=== PATIENT | male | born 1970 | race Caucasian/White ===

== ENCOUNTER 2018-05-10 11:45 | Emergency (ER) | payer SELFPAY ==
[2018-05-10] MEDS ORDERED: Diphtheria,Pertussis(Acell),Tetanus Vaccine 0.5 ML Syringe IM ONE (12:57)
--- NOTE | 2018-05-10 12:57 | EDM.PDOC ---
ED HPI GENERAL MEDICAL PROBLEM - General Chief Complaint: Upper Extremity Injury/Pain Stated Complaint: NAIL WENT INTO HIS RIGHT PALM Time Seen by Provider: 05/10/18 12:39 Source of Information: Reports: Patient History Limitations: Reports: No Limitations - History of Present Illness INITIAL COMMENTS - FREE TEXT/NARRATIVE: HISTORY AND PHYSICAL: History of present illness: 47-year-old well patient presented to the ER today after a injury to his right hand. Patient states he was working last night at about 8 PM and he slapped his hand onto a board with a nail in it. The nail did not penetrate the skin however it did leave a small red shoshana on his right medial surface of his palm. Patient presented to ER today because the pain has progressively gotten worse, increased swelling, patient describes pain as sharp, worse with movement, 6 out of 10. Patient's last tetanus was greater than 5 years ago. Review of systems: As per history of present illness and below otherwise all systems reviewed and negative. Past medical history: As per history of present illness and as reviewed below otherwise noncontributory. Surgical history: As per history of present illness and as reviewed below otherwise noncontributory. Social history: No reported history of drug or alcohol abuse. Family history: As per history of present illness and as reviewed below otherwise noncontributory. Physical exam: General: Well-appearing male who appears to be a reliable historian. Nontoxic appearing and in no acute distress. Alert and oriented. HEENT: Atraumatic, normocephalic, pupils equal and reactive bilaterally, negative for conjunctival pallor or scleral icterus, mucous membranes moist, throat clear, neck supple, nontender, trachea midline. No drooling or trismus noted. No meningeal signs Lungs: Clear to auscultation, breath sounds equal bilaterally, chest nontender. Heart: S1S2, regular rate and rhythm without overt murmur Abdomen: Soft, nondistended, nontender. Pelvis: Stable nontender. Genitourinary: Deferred. Rectal: Deferred. Skin: Puncture wound noted to the right medial palmar surface of the hand. No erythema, or drainage noted. There is significant swelling to the medial portion of the hand extending to the medial dorsal surface. Patient has pain with light palpation to area. Intact, warm, dry. No lesions or rashes noted. Extremities: Patient has adequate flexion and extension of the phalanges however there is some limited range of motion in the fourth and fifth digits of the right hand secondary to swelling. Neurovascular unremarkable. Neuro: Awake, alert, oriented. Cranial nerves II through XII unremarkable. Cerebellum unremarkable. Motor and sensory unremarkable throughout. Exam nonfocal. Notes: Patient is agreeable to an x-ray. X-ray is negative for fracture or dislocation. The injury does not appear to be a true puncture wound although there is a small punctate area on the palmar surface. The surrounding area has slight erythema and soft tissue swelling. This could represent an early cellulitis. We'll plan to treat with Keflex. Wound care provided in the ER. Tetanus updated. Signs and symptoms that would prompt him to return to the ER are discussed. Patient voices understanding and is agreeable to care. We'll give him tramadol, #15 for pain management. Supportive care measures were reviewed and discussed. With his primary care provider next week. Denies any further questions or concerns at this time. Diagnostics: [X-ray right hand] Therapeutics: Tdap, wound care Impression: Right hand injury Cellulitis Plan: 1. Keep the area clean and dry. Continue to monitor for signs of infection. 2. Take your medications as directed. Tylenol and/or ibuprofen as needed for pain management. You may use the tramadol for moderate to severe pain. This medication may cause drowsiness a do not take it will driving her needing to be functioning outside of the house. 3. Follow-up with your primary caregiver in the next 1-2 days. Return to the ED as needed and as discussed Definitive disposition and diagnosis as appropriate pending reevaluation and review of above. Right Hand Pain Score (Numeric/FACES): 5 - Related Data Allergies Allergy/AdvReac Type Severity Reaction Status Date / Time Penicillins Allergy Rash Verified 05/10/18 12:42 Home Meds: Home Meds Ibuprofen 2 tab PO ASDIRECTED PRN 03/27/15 [History] Insulin Glarg,Human.Rec.Analog [Lantus Solostar] 8 units SUBCUT BEDTIME [History] Liraglutide [Victoza] 1 injection SUBCUT DAILY 03/27/15 [History] Losartan Potassium 100 mg PO DAILY 03/27/15 [History] Naproxen Sodium [Aleve] 1 tab PO ASDIRECTED PRN 03/27/15 [History] Omeprazole [Prilosec] 20 mg PO DAILY 03/27/15 [History] Pitavastatin [Livalo] 2 mg PO DAILY 03/27/15 [History] metFORMIN [Glucophage] 500 mg PO BID 03/27/15 [History] MV-Min/Vit C/Glu/Maria Teresa HCl/HC124 [Airborne Tablet Chewable] 1 each PO 03/29/15 [ History] Past Medical History HEENT History: Reports: Impaired Vision Cardiovascular History: Reports: High Cholesterol, Hypertension Endocrine/Metabolic History: Reports: Diabetes, Type II Oncologic (Cancer) History: Reports: Basal Cell Carcinoma, Squamous Cell Carcinoma - Infectious Disease History Infectious Disease History: Reports: Chicken Pox - Past Surgical History Musculoskeletal Surgical History: Reports: Arthroscopic Knee Social & Family History - Family History Family Medical History: Noncontributory - Tobacco Use Smoking Status *Q: Former Smoker Used Tobacco, but Quit: Yes Month/Year Tobacco Last Used: 1997 - Caffeine Use Caffeine Use: Reports: Coffee, Energy Drinks, Soda, Tea - Recreational Drug Use Recreational Drug Use: No Review of Systems - Review of Systems Review Of Systems: ROS reveals no pertinent complaints other than HPI. ED EXAM, GENERAL - Physical Exam Exam: See Below (See dictation) Course - Vital Signs Last Recorded V/S: Last Vital Signs Temp 98.2 F 05/10/18 12:37 Pulse 83 05/10/18 12:37 Resp 18 05/10/18 12:37 BP 143/79 H 05/10/18 12:37 Pulse Ox 97 05/10/18 12:37 - Orders/Labs/Meds Orders: Active Orders 24 hr Category Date Time Status Vaccines to be Administered [RC] PER UNIT ROUTINE Care 05/10/18 12:57 Active Hand 2V Rt [CR] Stat Exams 05/10/18 12:57 Taken Meds: Medications Discontinued Medications Generic Name Dose Route Start Last Admin Trade Name Freq PRN Reason Stop Dose Admin Diphtheria/Tetanus/Acell Pertussis 0.5 ml 05/10/18 12:57 05/10/18 13:26 Adacel IM 05/10/18 12:58 0.5 ml .ONCE ONE Administration Departure - Departure Time of Disposition: 13:46 Disposition: Home, Self-Care 01 Clinical Impression: Cellulitis Injury of right hand Qualifiers: Encounter type: initial encounter Qualified Code(s): S69.91XA - Unspecified injury of right wrist, hand and finger(s), initial encounter - Discharge Information Referrals: Derek Oneal MD [Primary Care Provider] - Forms: ED Department Discharge Additional Instructions: The following information is given to patients seen in the emergency department who are being discharged to home. This information is to outline your options for follow-up care. We provide all patients seen in our emergency department with a follow-up referral. The need for follow-up, as well as the timing and circumstances, are variable depending upon the specifics of your emergency department visit. If you don't have a primary care physician on staff, we will provide you with a referral. We always advise you to contact your personal physician following an emergency department visit to inform them of the circumstance of the visit and for follow-up with them and/or the need for any referrals to a consulting specialist. The emergency department will also refer you to a specialist when appropriate. This referral assures that you have the opportunity for follow-up care with a specialist. All of these measure are taken in an effort to provide you with optimal care, which includes your follow-up. Under all circumstances we always encourage you to contact your private physician who remains a resource for coordinating your care. When calling for follow-up care, please make the office aware that this follow-up is from your recent emergency room visit. If for any reason you are refused follow-up, please contact the [facility] Emergency Department at and asked to speak to the emergency department charge nurse. [facility] [address] [place] [id number] 1. Keep the area clean and dry. Continue to monitor for signs of infection. 2. Take your medications as directed. Tylenol and/or ibuprofen as needed for pain management. You may use the tramadol for moderate to severe pain. This medication may cause drowsiness a do not take it will driving her needing to be functioning outside of the house. 3. Follow-up with your primary caregiver in the next 1-2 days. Return to the ED as needed and as discussed - My Orders Last 24 Hours: My Active Orders 05/10/18 12:57 Vaccines to be Administered [RC] PER UNIT ROUTINE Hand 2V Rt [CR] Stat - Assessment/Plan Last 24 Hours: My Active Orders 05/10/18 12:57 Vaccines to be Administered [RC] PER UNIT ROUTINE Hand 2V Rt [CR] Stat
[2018-05-10 13:57] VITALS: BP 136/80
--- NOTE | 2018-05-11 16:02 | CR ---
EXAM DATE: 05/10/18 PATIENT'S AGE: 47 Patient: GREGORIO SMITH Facility: [place], [place] Site . Site : 1970 Study: XRay Extremity Right hand [id number]/17/2018 1:21:02 PM Ordering Physician: Doctor Chen Final Report: Indication: Injury and pain Technique: Right hand 2 views Comparison: None Findings: Bones: Alignment is normal. No fractures or bone lesions. Joint spaces: Unremarkable. Soft tissues: Unremarkable. Impression: No sign of acute injury. Dictated by Ronnell Hicks MD @ May 10 2018 1:53PM (Electronic Signature) Report Signed by Proxy. ANAND
== END 2018-05-10 13:55 | disposition home or self-care (01) ==
LOC: MW.ED 11:45
DX: S61.431A Puncture wound without foreign body of right hand, initial encounter (principal); L03.113 Cellulitis of right upper limb; E78.00 Pure hypercholesterolemia, unspecified; I10 Essential (primary) hypertension; E11.9 Type 2 diabetes mellitus without complications; Z88.0 Allergy status to penicillin; Z79.4 Long term (current) use of insulin; Z79.899 Other long term (current) drug therapy; Z23 Encounter for immunization; Z87.891 Personal history of nicotine dependence; W22.8XXA Striking against or struck by other objects, initial encounter
CPT/HCPCS: 73120-26-RT; 73120-RT; 90471; 90715; 99283; 99283-25

== ENCOUNTER 2021-03-28 07:05 | Day surgery (SDC) | payer BC ==
[~2021-03-28 07:05] MED LIST: Lactated Ringers 1,000 ML IV SCH
[2021-03-28] MEDS ORDERED: Lidocaine 2% 5 ML SDV ONE (07:18)
[2021-03-28] MEDS ORDERED: Propofol 200 MG/20 ML SDV ONE ×2 (07:19→08:37)
[2021-03-28] MEDS ORDERED: fentaNYL 100 MCG/2 ML SDV ONE (07:19)
--- NOTE | 2021-03-28 07:37 | PCM.PREANE ---
Preanesthetic Assessment - Anesthesia/Transfusion/Family Hx Anesthesia History: Prior Anesthesia Without Reaction Family History of Anesthesia Reaction: No Transfusion History: No Prior Transfusion(s) - Review of Systems General: No Symptoms Pulmonary: No Symptoms Cardiovascular: No Symptoms Gastrointestinal: No Symptoms Neurological: No Symptoms Other: Reports: None - Physical Assessment NPO Status Date: 03/28/21 NPO Status Time: 00:01 Vital Signs: Last Vital Signs Temp 96.8 F L 03/28/21 07:11 Pulse 109 H 03/28/21 07:11 Resp 15 03/28/21 07:11 BP 140/91 H 03/28/21 07:11 Pulse Ox 97 03/28/21 07:11 Height: 5 ft 10 in Weight: 203 lb ASA Class: 2 Mental Status: Alert & Oriented x3 Dentition: Reports: Normal Dentition ROM/Head Extension: Full Lungs: Clear to Auscultation, Normal Respiratory Effort Cardiovascular: Regular Rate, Regular Rhythm - Allergies Allergies/Adverse Reactions: Allergies Allergy/AdvReac Type Severity Reaction Status Date / Time Penicillins Allergy Rash Verified 03/22/21 10:12 - Anesthesia Plan Pre-Op Medication Ordered: None - Acknowledgements Anesthesia Type Planned: General Anesthesia Pt an Appropriate Candidate for the Planned Anesthesia: Yes Alternatives and Risks of Anesthesia Discussed w Pt/Guardian: Yes Pt/Guardian Understands and Agrees with Anesthesia Plan: Yes Additional Comments: npo htn no cv problems gaby Aodm gout tob quit 2000 etoh quit 2000 par no questions PreAnesthesia Questionnaire HEENT History: Reports: Other (See Below) Other HEENT History: wears glasses Cardiovascular History: Reports: High Cholesterol, Hypertension Respiratory History: Reports: None Gastrointestinal History: Reports: GERD Genitourinary History: Reports: None Musculoskeletal History: Reports: Arthritis, Gout Neurological History: Reports: Concussion, Head Trauma, Migraines, Vertigo Other Neuro History: hx of fx skull as a child Psychiatric History: Reports: None Endocrine/Metabolic History: Reports: Diabetes, Type II, IDDM Hematologic History: Reports: None Immunologic History: Reports: None Oncologic (Cancer) History: Reports: None Dermatologic History: Reports: None - Infectious Disease History Infectious Disease History: Reports: Chicken Pox - Past Surgical History Head Surgeries/Procedures: Reports: None HEENT Surgical History: Reports: Other (See Below) Other HEENT Surgeries/Procedures: squamous cell cancer removed from above eye Respiratory Surgical History: Reports: None GI Surgical History: Reports: None Male Surgical History: Reports: Vasectomy Endocrine Surgical History: Reports: None Neurological Surgical History: Reports: None Musculoskeletal Surgical History: Reports: Arthroscopic Knee Oncologic Surgical History: Reports: None - SUBSTANCE USE Tobacco Use Status *Q: Former Tobacco User Tobacco Use Within Last Twelve Months: No Recreational Drug Use History: No - HOME MEDS Home Medications: Home Meds Insulin Glarg,Human.Rec.Analog [Lantus Solostar] 28 units SUBCUT BEDTIME 03/27/15 [History] Liraglutide [Victoza] 1 injection SUBCUT DAILY 03/27/15 [History] Losartan Potassium 100 mg PO QAM 03/27/15 [History] metFORMIN [Glucophage] 500 mg PO BID 03/27/15 [History] Pantoprazole Sodium [Protonix] 40 mg PO DAILY PRN 03/22/21 [History] Pravastatin Sodium [Pravastatin (Pravachol)] 40 mg PO BEDTIME 03/22/21 [History] - CURRENT (IN HOUSE) MEDS Current Meds: Current Medications Lactated Ringer's (Ringers, Lactated) 1,000 mls @ 125 mls/hr IV ASDIRECTED [facility] Last Admin: 03/28/21 07:28 Dose: 125 mls/hr Documented by: Discontinued Medications Fentanyl (Fentanyl 100 Mcg/2 Ml Sdv) Confirm Administered Dose 100 mcg .ROUTE .STK-MED ONE Stop: 03/28/21 07:20 Lidocaine (Lidocaine 2% 5 Ml Sdv) Confirm Administered Dose 5 ml .ROUTE .STK-MED ONE Stop: 03/28/21 07:19 Propofol (Propofol 200 Mg/20 Ml Sdv) Confirm Administered Dose 200 mg .ROUTE .STK-MED ONE Stop: 03/28/21 07:20
--- NOTE | 2021-03-28 09:20 | PCM.OPNOTE ---
- General Post-Op/Procedure Note Date of Surgery/Procedure: 03/28/21 Operative Procedure(s): EGD with biopsies. Colonoscopy with polypectomies Findings: Hiatal hernia - small Stomach polyp irregular GE junction Colon polyps dictation number [id number] Pre Op Diagnosis: screening colonoscopy. GERD Post-Op Diagnosis: Hiatal hernia - small. Stomach polyp. irregular GE junction. Colon polyps Primary Surgeon: Jason Bowie Pathology: EGD biopsies stomach polyps Colonoscopy polyps Complications: None Condition: Good
--- NOTE | 2021-03-28 09:25 | PCM.POSTAN ---
POST ANESTHESIA ASSESSMENT - MENTAL STATUS Mental Status: Alert (NO ANESTHETIC PROBLEMS), Oriented - VITAL SIGNS Vital Signs: Last Vital Signs Temp 96.8 F L 03/28/21 07:11 Pulse 97 03/28/21 09:19 Resp 9 L 03/28/21 09:19 BP 117/77 03/28/21 09:19 Pulse Ox 98 03/28/21 09:19 - RESPIRATORY Respiratory Status: Respiratory Rate WNL, Airway Patent, O2 Saturation Stable - CARDIOVASCULAR CV Status: Pulse Rate WNL, Blood Pressure Stable - GASTROINTESTINAL GI Status: No Symptoms - POST OP HYDRATION Hydration Status: Adequate & Stable
[2021-03-28 09:29] VITALS: BP 142/81; PULSE 100
--- NOTE | 2021-03-28 09:41 | PCM48HPAN ---
Post Anesthesia Note - EVALUATION WITHIN 48HRS OF ANESTHETIC Vital Signs in Normal Range: Yes Patient Participated in Evaluation: Yes Respiratory Function Stable: Yes Airway Patent: Yes Cardiovascular Function Stable: Yes Hydration Status Stable: Yes Pain Control Satisfactory: Yes Nausea and Vomiting Control Satisfactory: Yes Mental Status Recovered: Yes Vital Signs: Last Vital Signs Temp 97.2 F 03/28/21 09:24 Pulse 100 03/28/21 09:24 Resp 14 03/28/21 09:24 BP 142/81 H 03/28/21 09:24 Pulse Ox 96 03/28/21 09:24
--- NOTE | 2021-03-28 18:25 | OR ---
SURGEON: CONCHIS MARES MD DATE OF PROCEDURE: 03/28/2021 PREOPERATIVE DIAGNOSES: 1. History of gastroesophageal reflux disease. 2. Screening colonoscopy. POSTOPERATIVE DIAGNOSES: 1. Small hiatal hernia. 2. Irregular gastroesophageal junction. 3. Stomach polyp. 4. Colon polyps. PROCEDURES PERFORMED: 1. Colonoscopy with polypectomies. 2. Esophagogastroduodenoscopy with biopsies. PRIMARY SURGEON: Conchis Mares MD ANESTHESIA: With anesthesiologist. EXTENT OF THE COLONOSCOPY: To the cecum and terminal ileum. EXTENT OF THE EGD: To the second part of duodenum. BOWEL PREP: Very good. LIMITATIONS: None. REASON FOR PROCEDURE: The patient is a pleasant 50-year-old gentleman. He has never had a colonoscopy before. He denies any blood in stool. He denies any family history of colon cancer. The patient also has had acid reflux for 10 years. He says this is overall well- controlled with medication. He denies any swallowing issues. PROCEDURE IN DETAIL: Physical exam was performed. Major risks and benefits associated with procedure were explained in detail to the patient. The patient verbalized understanding and was in agreement of the same. The patient was then connected to the appropriate devices and IV was started. EKG, pulse oximetry, blood pressure, and capnography were monitored throughout the procedure. Continuous oxygen and sedation were provided by the anesthesiologist. The patient was placed in left lateral decubitus position and sedation began. After adequate sedation was achieved, an upper endoscope was advanced under direct visualization without any difficulty in the upper GI tract. The anatomy and mucosa of the esophagus, GE junction, stomach, and at least the second part of the duodenum were all inspected. Duodenum appeared normal. Both retro and antegrade views of the stomach also appeared good, really no gastritis. I did do biopsies of the antrum pylorus to check for H pylori. The patient had one small polyp, more in the greater curvature of the body of the stomach. This was removed with a cold biopsy polypectomy. Good hemostasis. Scope was brought through the GE junction. GE junction was about 36 cm from the incisor. It did have a small sliding hiatal hernia. GE junction was slightly irregular, so I did do biopsies in four quadrants. Scope was brought through the stomach. Stomach was desufflated. Scope was brought up through the esophagus, GE junction, had good hemostasis, and esophagus appeared normal. The gloves and scopes were changed. Now, a rectal exam was performed. No rectal masses or polyps were felt. Now, a well-lubricated Olympus colonoscope was entered in the rectum and advanced under direct visualization to the level of the cecum. Cecum was identified by both visual and anatomic landmarks. Photographs were taken of the cecal cap. The terminal ileum was also intubated. Scope was then slowly withdrawn in somewhat circular fashion looking at the color, texture, anatomy, and integrity of the mucosa from the cecum to the anal canal. The patient had a small polyp at 90 cm. This was in the ascending colon just past the ileocecal valve. It was removed with a hot snare polypectomy. Scope was continued to be withdrawn. The patient had another polyp in the ascending colon at about 80 cm. This was small and also removed with a hot snare polypectomy. Scope was continued to be withdrawn. No other polyps were seen. Scope was then retroflexed in the rectum. Scope was completely removed and the procedure was terminated. ENDOSCOPIC DIAGNOSES: 1. Small hiatal hernia. 2. One gastric polyp. 3. Slightly irregular gastroesophageal junction. 4. Two colon polyps. RECOMMENDATIONS: 1. Followup colonoscopy will depend on pathology, but most likely another one in five years, sooner if he develops signs and symptoms such as change in bowel habits or blood in his stool. 2. EGD: He should follow up in the clinic to go over his EGD pathology. The patient should continue taking his antireflux . TEODORO / BERNIE /[id number]
== END 2021-03-28 09:50 | disposition home or self-care (01) ==
LOC: MW.SDS 07:05
PROVIDERS: ATTEND Surgery
DX: D12.2 Benign neoplasm of ascending colon (principal); K31.7 Polyp of stomach and duodenum; K21.00 Gastro-esophageal reflux disease with esophagitis, without bleeding; K44.9 Diaphragmatic hernia without obstruction or gangrene; I10 Essential (primary) hypertension; E78.00 Pure hypercholesterolemia, unspecified; E11.9 Type 2 diabetes mellitus without complications; M17.11 Unilateral primary osteoarthritis, right knee; M10.9 Gout, unspecified; Z88.0 Allergy status to penicillin; Z79.899 Other long term (current) drug therapy; Z87.891 Personal history of nicotine dependence; Z83.71 Family history of colonic polyps; Z79.4 Long term (current) use of insulin
CPT/HCPCS: 43239; 45385; 82947; 88305; 88312; J2704; J3010; J7120

== ENCOUNTER 2024-06-23 18:14 | Emergency (ER) | payer BC ==
[2024-06-23] MEDS: Lidocaine 1% 5 ML VIAL INJECT ONE (19:32)
[2024-06-23] MEDS: Bacitracin Oint 1 GM U/D Packet TOP ONE (19:32)
[2024-06-23] MEDS: Doxycycline 100 MG Cap PO ONE (20:42)
[2024-06-23 20:54] VITALS: BP 121/67; PULSE 82
== END 2024-06-23 20:54 | disposition home or self-care (01) ==
LOC: MW.ED 18:14
DX: S81.011A Laceration without foreign body, right knee, initial encounter (principal); I10 Essential (primary) hypertension; E78.00 Pure hypercholesterolemia, unspecified; E11.9 Type 2 diabetes mellitus without complications; Z79.899 Other long term (current) drug therapy; Z79.4 Long term (current) use of insulin; Z88.0 Allergy status to penicillin; Z75.8 Other problems related to medical facilities and other health care; W19.XXXA Unspecified fall, initial encounter
CPT/HCPCS: 12002; 73562; 99283; A9270; 12001; J3490

== ENCOUNTER 2024-10-29 09:22 | Day surgery (SDC) | payer BC ==
[2024-10-29] MEDS: Lactated Ringers 1,000 ML IV SCH (11:26)
[2024-10-29] MEDS ORDERED: propofoL 500 MG/50 ML 50 ML ONE (11:57)
[2024-10-29] MEDS ORDERED: Lidocaine 2% 5 ML SDV ONE (11:57)
[2024-10-29 13:12] VITALS: BP 121/74; PULSE 81
== END 2024-10-29 13:15 | disposition home or self-care (01) ==
LOC: MW.SDS 09:22
PROVIDERS: ATTEND Surgery
DX: Z12.11 Encounter for screening for malignant neoplasm of colon (principal); D12.6 Benign neoplasm of colon, unspecified; Z86.0100 Personal history of colon polyps, unspecified; K21.9 Gastro-esophageal reflux disease without esophagitis; I10 Essential (primary) hypertension; E78.00 Pure hypercholesterolemia, unspecified; E11.9 Type 2 diabetes mellitus without complications; Z87.891 Personal history of nicotine dependence; Z79.4 Long term (current) use of insulin; Z79.84 Long term (current) use of oral hypoglycemic drugs; Z79.85 Long-term (current) use of injectable non-insulin antidiabetic drugs; Z79.899 Other long term (current) drug therapy; Z88.0 Allergy status to penicillin
CPT/HCPCS: 45380; J2704; J7120; 00811; J3490